=== PATIENT | female | born 1985 | race Caucasian/White ===

== ENCOUNTER → 2021-09-29 | Outpatient (CLI) | payer BC | LOC: EXRD 09:20 | DX: R10.9 Unspecified abdominal pain (principal); K56.41 Fecal impaction | CPT/HCPCS: 74018; 76705 ==

== ENCOUNTER → 2021-10-05 | Outpatient (CLI) | payer BC | LOC: EXRD 15:23 | DX: K59.00 Constipation, unspecified (principal) | CPT/HCPCS: 74018 ==